=== PATIENT | female | born 1975 | race African-American/Black ===

== ENCOUNTER 2020-05-04 08:14 | Emergency (ER) | payer OTHER ==
[~2020-05-04] VITALS: Ht 170.2 cm; Wt 81.6 kg
[2020-05-04 08:25] VITALS: BP 138/81
--- NOTE | 2020-05-04 08:25 | NUR ---
ED Nurse Note: pt walked into ED from home c/o cough and SOB x4 days, with yellow phlegm. Pt is awake alert oriented x4. Breathing even and mildly labored, on RA 97%. Other vitals stable as documented.
--- NOTE | 2020-05-04 08:29 | Emergency Room Report ---
History of Present Illness General Chief Complaint: Dyspnea/Respdistress Source: Patient Present Illness [facility] Disclaimer: Please note that this report is being documented using [employer] technology. This can lead to erroneous entry secondary to incorrect interpretation by the dictating instrument. HPI: 44-year-old female with no reported medical history presents for evaluation of shortness of breath and cough. Symptoms present for days. She reports her cousin recently came to stay with her and she has been sick lately. Now the whole family is experiencing similar symptoms. She reports 4 days productive cough with yellow phlegm, sore throat, nasal congestion. Yesterday and today she became progressively more short of breath. Denies nausea, vomiting, chest pain, palpitation, fever, chills, skin rash or other changes in her health. No recent testing for COVID. Patient has a long smoking history but states she has not been diagnosed with COPD. Does not take any medications or use any inhalers. PMH: Patient denied PSH: Patient denied Allergies: Denied Social Hx: Daily cigarette use Allergies: Coded Allergies: No Known Allergies (Unverified , 05/04/20) COVID-19 Screening Contact w/high risk pt: No Experienced COVID-19 symptoms?: Yes COVID-19 Testing performed [employer] PERSON: No Patient History Last Menstrual Period: na Nursing Documentation-PMH Past Medical History: No Stated History Review of Systems All Other Systems: negative except mentioned in HPI Physical Exam Vital Signs Date Time Temp Pulse Resp B/P (MAP) Pulse Ox O2 Delivery O2 Flow Rate FiO2 05/04/20 08:19 97.0 111 17 143/79 (100) 98 Room Air General: Awake and alert, no acute distress HEENT: NC/AT. EOMI. Cardiovascular: Tachycardic. S1 and S2 normal. No murmur appreciated Resp: Mild increased work of breathing. 90% on room air. Diffuse bilateral inspiratory and expiratory wheezing. No crackles. Intermittent cough during the exam. Abdomen: Abdomen is soft, nondistended. Nontender Skin: Intact. No abrasions, laceration or rash over the exposed skin MSK: Normal tone and bulk. Moving all extremities. No obvious deformity. Neuro: Awake and alert. Mentating appropriately. Medical Decision Making Diagnostic Impression: Primary Impression: Bronchitis ER Course 44-year-old female presenting for shortness of breath and cough. Differential includes is not limited to bronchitis, pneumonia, COPD exacerbation, COVID-19 infection, pneumothorax, viral syndrome among others. Chest x-ray does not show obvious infiltrate. Patient remained 100% on room air while in the emergency department. COVID returned negative. Likely the patient has undiagnosed COPD and is also suffering from superimposed bronchitis given the purulent sputum. Patient was given breathing treatments and noted significant improvement in her breathing. She was started on prednisone. We will continue steroid burst for the next few days and start on doxycycline. I prescribed her albuterol inhaler. Encouraged her to follow-up with outpatient clinic for pulmonary function testing as I do believe she has underlying COPD secondary to long smoking history. She is otherwise well-appearing do not believe she requires other emergent work-up in the ED at this time. Discussed reasons to return to the emergency department. She understands and agrees with treatment plan. Microbiology Date/Time Source Procedure Growth Status 05/04/20 08:28 Nasopharynx SARS-CoV-2 RdRp Gene Assay - Final Complete Chest X-Ray Diagnostic Results Chest X-Ray Diagnostic Results : Chest X-Ray Ordered: Yes # of Views/Limited/Complete: 1 View Indication: Shortness of Breath EP Interpretation: Yes Interpretation: no consolidation, no effusion, no pneumothorax, no acute cardiopulmonary disease Impression: No acute disease Electronically Signed by: Electronically signed by Dr. Sathish Goss Last Vital Signs Date Time Temp Pulse Resp B/P (MAP) Pulse Ox O2 Delivery O2 Flow Rate FiO2 05/04/20 08:19 97.0 111 17 143/79 (100) 98 Room Air Disposition: HOME, SELF-CARE Condition: Improved Scripts Doxycycline Monohydrate* (DOXYCYCLINE MONOHYDRATE*) 100 Mg Capsule 100 MG ORAL Q12H, #14 CAP 0 Refills Prov: Sathish Goss MD 05/04/20 Prednisone* (PREDNISONE*) 20 Mg Tablet 40 MG ORAL DAILY for 4 Days, #8 TAB Prov: Sathish Goss MD 05/04/20 Albuterol Sulfate (VENTOLIN HFA) 18 Gm Hfa.aer.ad 1 PUFF INH EVERY 6 HOURS, #18 GM 0 Refills Prov: Sathish Goss MD 05/04/20 Sathish Goss MD May 04, 2020 08:29
--- NOTE | 2020-05-04 08:40 | NUR ---
ED Nurse Note: COVID swab sent to lab.
--- NOTE | 2020-05-04 08:46 | NUR ---
ED Nurse Note: xray at bedside performing CXR.
--- NOTE | 2020-05-04 09:15 | Diagnostic Imaging Report ---
EXAM: XR Chest, 1 View CLINICAL HISTORY: Shortness of breath TECHNIQUE: Frontal view of the chest. COMPARISON: No relevant prior studies available. FINDINGS: Lungs: Unremarkable. The lungs appear clear. No focal consolidation. Pleural space: Unremarkable. The costophrenic angles are sharp. No visible pneumothorax. Heart: Unremarkable. No cardiomegaly. Mediastinum: Unremarkable. Bones/joints: Unremarkable. IMPRESSION: Unremarkable chest x-ray.
--- NOTE | 2020-05-04 09:57 | NUR ---
ED Nurse Note: COVID negative, Resp Ttherapist called.
--- NOTE | 2020-05-04 10:02 | NUR ---
ED Nurse Note: RT at bedside giving breathing treatment.
[2020-05-04] MEDS: Albuterol/Ipratropium 3ml neb HHN SCH ×2 (10:08→10:09)
[2020-05-04] MEDS ORDERED: DOXYCYCLINE MO100 MG ORAL (10:42)
[2020-05-04] MEDS ORDERED: PREDNISONE20 MG ORAL (10:42)
[2020-05-04] MEDS ORDERED: VENTOLIN HFA18 GM INH (10:42)
[2020-05-04 10:52] VITALS: BP 130/84
--- NOTE | 2020-05-04 10:52 | NUR ---
ER DISCHARGE NOTE: Patient is cleared to be discharged per ERMD, pt is aox4, on room air, with stable vital signs. pt was given dc and prescription instructions, pt was able to verbalize understanding, pt id band removed without complications. pt is able to ambulate with steady gait. pt took all belongings.
== END 2020-05-04 10:52 | disposition home or self-care (01) ==
LOC: EMR 08:42
DX: J20.9 Acute bronchitis, unspecified (principal); R00.0 Tachycardia, unspecified
CPT/HCPCS: 71045; 94640; J7512; U0002; Z7502; 99284; J7620